=== PATIENT | male | born 1985 | race Caucasian/White ===

== ENCOUNTER 2016-07-26 00:52 | Emergency (ER) | payer OTHER ==
[2016-07-26 01:01] VITALS: BP 123/75; PULSE 98; RESP 16; O2SAT 98
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
--- NOTE | 2016-07-26 08:02 | DRSVH ---
PROCEDURE: CT BRAIN WITHOUT CONTRAST ([id number]) INDICATIONS: head injury, altered mental status TECHNIQUE: Noncontrast 4.5 mm thick angled axial sections acquired from the foramen magnum to the vertex, with c oronal reformats. COMPARISON: None. FINDINGS: Image quality: Excellent. CSF spaces: Basal cisterns are patent. No extra-axial fluid collections. Ventricles are normal in size and shape. Brain: No midline shift. No intracranial masses or hemorrhage. Grande-white matter interface is norm al. Skull and face: Calvarium and visualized facial bones are intact, without suspicious lesions. There is left temporoparietal scalp contusion and subscalp hematoma. Sinuses: Visualized sinuses and mastoids are clear. IMPRESSION: 1. No acute intracranial abnormalities. 2. Left frontal temporal parietal scalp contusion and subscalp hematoma. No significant discrepancy with the assembler 1st shift radiology preliminary report. Dictated by: Carmen Miller M.D. on 07/26/2016 at 7:56 Approved by: Carmen Miller M.D. on 07/26/2016 at 7:59
== END 2016-07-26 02:10 ==
LOC: SED 00:52
DX: S09.8XXA Other specified injuries of head, initial encounter (principal); F10.10 Alcohol abuse, uncomplicated; Y04.0XXA Assault by unarmed brawl or fight, initial encounter; Y93.89 Activity, other specified; Y99.8 Other external cause status; Y92.019 Unspecified place in single-family (private) house as the place of occurrence of the external cause; F17.200 Nicotine dependence, unspecified, uncomplicated